=== PATIENT | male | born 1955 | race Caucasian/White ===

== ENCOUNTER 2019-11-07 12:15 | Observation (INO) ==
[2019-11-07] MEDS ORDERED: Nitroglycerin 0.4 MG TAB.SUBL SL PRN ×2 (13:01→14:47)
[2019-11-07] MEDS ORDERED: Aspirin 325 MG TABLET PO ONE (13:01)
[2019-11-07 13:11] LABS: Basophils # 0.1 K/mcL (0.0-0.2); Basophils % 0.6 %; Eosinophils # 0.3 K/mcL (0.0-0.6); Eosinophils % 2.4 %; Hematocrit 48.1 % (37.5-50.1); Hemoglobin 17.2 g/dL (12.9-16.9); Immature Granulocytes % 0.5 % (0-4); Lymphocytes # 2.7 K/mcL (0.6-4.6); Lymphocytes % 25.9 %; Mean Corpuscular HGB Conc 35.8 g/dL (31.6-35.5); Mean Corpuscular Volume 92.3 fL (83.0-100.0); Mean Platelet Volume 9.6 fL (9.4-12.4); Monocytes # 1.2 K/mcL (0.0-1.3); Monocytes % 11.3 %; Neutrophils # 6.2 K/mcL (1.6-8.9); Platelet Count 191 K/mcL (140-400); Red Blood Count 5.21 M/mcL (4.19-5.50); Red Cell Distribution Width 11.5 % (11.5-14.5); Segmented Neutrophils % 59.3 %; White Blood Count 10.4 K/mcL (4.3-11.1)
[2019-11-07 13:15] LABS: INR 1.1
[2019-11-07 13:17] LABS: Activated Partial Thrombo Time 33.2 Seconds (26.0-36.0)
[2019-11-07 13:30] LABS: BUN/Creatinine Ratio 13 (6-26); Blood Urea Nitrogen 15 mg/dL (8-23); Calcium 9.6 mg/dL (8.6-10.3); Carbon Dioxide 25 mEq/L (23-29); Chloride 103 mEq/L (98-107); Glucose 99 mg/dL (70-105); Osmolality,Calculated 289 (280-300); Potassium 4.1 mEq/L (3.5-5.1); Sodium 139 mEq/L (136-145); eGFR For African Americans > 60 (> 60); eGFR For Non-African Americans > 60 (> 60)
[2019-11-07 13:31] LABS: Troponin I < 0.03 ng/mL (< 0.04)
[2019-11-07] MEDS ORDERED: Naloxone 0.4 MG/ML INJ IVP PRN (14:44)
[2019-11-07] MEDS ORDERED: Ondansetron 4 MG/2 ML VIAL IVP PRN (14:44)
[2019-11-07 15:32] LABS: Magnesium 2.1 mg/dL (1.6-2.6)
[2019-11-07] MEDS: *HR* Heparin 5,000 UNIT/ML VIAL SQ SCH (21:17)
[2019-11-08 04:16] LABS: Alanine Aminotransferase 27 Units/L (7-52); Albumin/Globulin Ratio 1.9 (1.1-2.2); Alkaline Phosphatase 71 Units/L (34-104); Aspartate Amino Transferase 18 Units/L (13-39); BUN/Creatinine Ratio 14 (6-26); Bilirubin,Total 0.4 mg/dL (0.3-1.0); Blood Urea Nitrogen 17 mg/dL (8-23); Calcium 9.2 mg/dL (8.6-10.3); Carbon Dioxide 25 mEq/L (23-29); Chloride 104 mEq/L (98-107); Chol/HDL Ratio 4.1 (0-4.9); Cholesterol 159 mg/dL (< 200); Globulin 2.1 g/dL (2.4-3.5); Glucose 94 mg/dL (70-105); HDL Cholesterol 39 mg/dL (40-59); LDL Cholesterol,Calculated 41 mg/dL (0-99); Osmolality,Calculated 291 (280-300); Potassium 3.9 mEq/L (3.5-5.1); Sodium 140 mEq/L (136-145); Total Protein 6.1 g/dL (6.4-8.9); Triglycerides 395 mg/dL (< 150); Troponin I < 0.03 ng/mL (< 0.04); eGFR For African Americans > 60 (> 60); eGFR For Non-African Americans > 60 (> 60)
[2019-11-08] MEDS: *HR* Heparin 5,000 UNIT/ML VIAL SQ SCH (04:35)
[2019-11-08] MEDS ORDERED: Regadenoson 0.4 MG/5 ML SYRINGE IVP ONE (06:17)
[2019-11-08] MEDS ORDERED: Aspirin Enteric Coated 81 MG Tablet PO SCH (09:00)
[2019-11-08 11:08] VITALS: BP 142/81
== END 2019-11-08 12:37 | disposition home or self-care (01) ==
LOC: 3BNU 12:15 → EMEROOARM 12:15 → 3BNU 15:56
PROVIDERS: ADMIT Internal Medicine; ATTEND Internal Medicine